=== PATIENT | male | born 2000 | race African-American/Black ===

== ENCOUNTER 2023-08-21 18:20 | Emergency (ER) | payer SELFPAY ==
--- NOTE | ~2023-08-21 | XR_ITS ---
EXAM: XR hand RT min 3V DATE: 08/21/2023 18:35 HISTORY: hand injury, swelling, pain . COMPARISON: None available. FINDINGS: Normal mineralization. Mildly comminuted fractures of the distal aspect of the right fifth metacarpal shaft with anterior angulation. No lytic or blastic lesion. Joint spaces are maintained. No erosion or periosteal change. Soft tissues within normal limits. IMPRESSION: Angulated fracture of the distal aspect of the right fifth metacarpal shaft (boxer's type fracture). Reviewed, dictated and finalized at location K. IMPRESSION: Angulated fracture of the distal aspect of the right fifth metacarp al shaft (boxer's type fracture).
[2023-08-21 18:23] VITALS: BP 122/86; PULSE 65; RESP 13; TEMP 36.6; O2SAT 100
--- NOTE | 2023-08-21 18:47 | ED.UPPEXIN ---
HPI - Extremity Injury (Upper) General Chief Complaint: Extremity Injury, Upper Stated Complaint: right hand injury Time Seen by Provider: 08/21/23 18:47 Source: patient and other (friend) Mode of arrival: ambulatory Limitations: no limitations History of Present Illness HPI narrative: patient is a 23-year-old male Who presents emergency department today ambulatory with a steady gait for evaluation of pain to the right hand and pain/ swelling to his little finger. Patient states that last night he punched a truck. He denies any numbness or tingling to the right hand. He states that it hurts to move it. Denies any other injury or concerns at this time. Has not taken anything for the pain. Related Data Allergies Allergy/AdvReac Type Severity Reaction Status Date / Time No Known Allergies Allergy Verified 08/21/23 19:38 Review of Systems Review of Systems: CONSTITUTIONAL: Denies fever, chills, or sweats. CARDIOVASCULAR: Denies chest pain, palpitations, or edema. RESPIRATORY: Denies cough SKIN: Denies rash or itching. MUSCULOSKELETAL: right hand swelling/pain over the little finger. pain with ROM NEUROLOGIC: Denies headache, numbness, or weakness. PSYCHIATRIC: Denies anxiety or depression. All systems reviewed & are unremarkable except as noted in HPI and below Exam Narrative: GENERAL: Well-appearing, well-nourished, and in no acute distress. HEAD: Normocephalic, atraumatic. NECK: Supple. CHEST: respirations regular and non-labored HEART: Regular rate. 2+ radial pulse to BUE EXTREMITIES: there is significant swelling/deformity present to the right 5th metacarpal over the shaft aspect with tenderness over the MCP joint. pain with ROM to the hand although it is intact. distal NV intact. able to move fingers. cap refill <2 seconds. SKIN: Warm, dry, no rash. NEURO: No focal deficits. Alert and oriented x3. CN II-XII grossly intact. distal NV intact to RUE PSYCH: Normal mood and affect. Course Vital Signs Vital signs: Vital Signs Temperature 97.9 F 08/21/23 18:23 Pulse Rate 65 08/21/23 18:23 Respiratory Rate 13 08/21/23 18:23 Blood Pressure 122/86 08/21/23 18:23 Pulse Oximetry 100 08/21/23 18:23 Oxygen Delivery Room Air 08/21/23 18:23 Temperature 97.9 F 08/21/23 18:23 Pulse Rate 65 08/21/23 18:23 Respiratory Rate 13 08/21/23 18:23 Blood Pressure 122/86 08/21/23 18:23 Pulse Oximetry 100 08/21/23 18:23 Oxygen Delivery Room Air 08/21/23 18:23 Procedures Orthopedic Splinting/Casting Injury #1: Splinting/Casting Date: 08/21/23 Side: right Upper Extremity Injury Location: hand Upper Extremity Immobilizer: Michael wrap Splint: customized in ED (boxer's splint applied by product/device technologist, verified by myself) OCL: other (boxer's splint) Pre-Procedure Neuro Vascular Exam: normal Post-Procedure Neuro Vascular Exam: normal MDM - Extremity Injury (Upper) MDM Narrative Medical decision making narrative: presents for right hand pain/swelling after punching a truck. there is significant swelling to the 5th metacarpal. will obtain xray to rule out fracture. distal NV is intact. will give pain medications. x-ray positive for acute 5th metacarpal shaft boxer's fracture. no signs of tendon involvement. distal NV is is intact. strong radial pulses. pain under control. MICHAEL wrap and splint applied to injured extremity. he was given orthopedic contact information. discussed dc medications and RICE. Patient given strict return precautions if pain is worse or there is poor blood flow to the extremity, and advised to rest the limb and to followup with orthopedics as needed. Differential Diagnosis Differential diagnosis: Likely dislocation of finger and fracture of hand Medical Records Attestation: I reviewed the patient's medical records. Imaging Data Radiologist's impression: Impressions Hand X-Ray 08/21/23 18:43 IMPRESSION: Angulated fract
[2023-08-21] MEDS: KETOROLAC 30 MG/ML VIAL (*BKC) IM (19:36)
== END 2023-08-21 20:09 | disposition home or self-care (01) ==
PROVIDERS: Emergency Provider Nurse Practitioner
DX: S62.326A Displaced fracture of shaft of fifth metacarpal bone, right hand, initial encounter for closed fracture (principal); Z23 Encounter for immunization; W22.8XXA Striking against or struck by other objects, initial encounter
CPT/HCPCS: 29125; 73130; 90471; 96372; 99284; J1885